=== PATIENT | female | born 1945 | race Caucasian/White ===

== ENCOUNTER 2016-08-02 13:06 | Day surgery (SDC) | payer MEDICARE, OTHER ==
[2015-05-19 06:28] VITALS: BMI 29.3
--- NOTE | ~2016-08-02 | OP ---
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 PROCEDURE: Formalization of amputation of right index finger. SURGEON: Terra Huang MD. ANESTHESIA: General. INTRAOPERATIVE COMPLICATIONS: None. SUMMARY OF PATHOLOGIC FINDINGS: The patient had an irreparable distal right index fingertip amputation that required osteotomy for shortening and closure with ablation of the eponychial fold. OPERATIVE SUMMARY IN DETAIL: After obtaining the appropriate preoperative orthopedic surgery consent as well as anesthetic consultation, evaluation and clearance, the patient was brought to the operating room and placed on the operating table in supine position. After general laryngeal mask was administered, tourniquet was placed about the proximal aspect of the right upper extremity. Right upper extremity was prepped and draped in routine sterile fashion. The arm was elevated and exsanguinated, tourniquet inflated to 250 mmHg. I&D was carried out to include the skin, subcutaneous tissue as well as the bone using a bulb syringe. When it was felt that adequate cleansing had been done care was taken to try to completely ablate the nail bed using a scalpel and then the distal phalanx required shortening osteotomy. At this point, the volar skin flap was reapproximated to the dorsal skin flap using 4-0 Prolene. Sterile dressings were applied. Tourniquet was deflated. The patient was awakened, taken to the recovery room in stable condition. All final needle and sponge counts were correct. TRANSINT:[id number] Voice Confirmation ID: [id number] DOCUMENT ID: [id number] TERRA HUANG MD CC: [id number] DICTATION DATE: 08/20/161923 [employer] ATTENDANT: 08/21/16 0153 [facility] 08/02/16 [place] [id number] [place] [id number]
[~2016-08-02 13:06] MED LIST: HYDROCODONE-APA1 TAB PO; MULTI-DAY VITAM1 TAB PO
== END 2016-08-02 18:10 | disposition home or self-care (01) ==
LOC: D.ER 13:06 → D.OPS 13:06
DX: S68.120A Partial traumatic metacarpophalangeal amputation of right index finger, initial encounter (principal); W45.8XXA Other foreign body or object entering through skin, initial encounter; Y93.89 Activity, other specified; Y92.814 Boat as the place of occurrence of the external cause